=== PATIENT | male | born 1965 | race Caucasian/White ===

== ENCOUNTER 2025-03-07 17:45 | Emergency (ER) | payer OTHER, SELFPAY ==
[2025-03-07 18:03] VITALS: BP 98/60; PULSE 127; RESP 20; TEMP 38.7; O2SAT 96
--- NOTE | 2025-03-07 18:08 | EKG_ITS ---
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: : 1965 Requested By: Kerry Jack Order Number: [id number] Reading MD: Kerry Jack Measurements Intervals [place] Rate: 127 P: 61 AL: 112 QRS: 136 QRSD: 103 T: 58 QT: 309 QTc: 449 Interpretive Statements SINUS TACHYCARDIA WITH SHORT AL INTERVAL PATTERN CONSISTENT WITH PULMONARY DISEASE INCOMPLETE RIGHT BUNDLE BRANCH BLOCK [90+ ms QRS DURATION, TERMINAL R IN V1/V2, 40+ ms S IN I/aVL/V4/V5/V6] POSSIBLE RIGHT VENTRICULAR HYPERTROPHY [SOME/ALL OF: PROMINENT R IN V1, LATE TRANSITION, RAD, BRANDIE, SSS] SEPTAL MYOCARDIAL INFARCTION , OF INDETERMINATE AGE [40+ ms Q WAVE IN V1/V2] No previous ECG available for comparison /[id number]/[email or web address]/[id number].pdf
--- NOTE | 2025-03-07 18:18 | XR_ITS ---
EXAMINATION: AP chest single view TECHNIQUE: AP portable semiupright chest single view Date and time: March 07, 2025, 1850 hours INDICATIONS: Sepsis alert FINDINGS: Normal heart size Lungs are clear. The osseous structures are intact IMPRESSION: No active disease
--- NOTE | 2025-03-07 18:20 | EDNOTE_ITS ---
ED General RME/HPI General Chief complaint: General Adult/Misc Complain Stated complaint: PASSED OUT AT [place]; TACHY X 1 MO., HR 128 Time Seen by Provider: 03/07/25 18:17 Arrival date/time: 03/07/25 17:45 CC: Syncope HPI patient presents to the ER via EMS who report tachypneic and tachycardic at bedside states the patient became unconscious after syncopal episode and turned blue, [id number] was established and the patient woke up gasping for air , currently the patient is awake alert oriented nontoxic- appearing with no complaints such as chest pain shortness of breath difficulty breathing dizziness or blurred vision. Related Data Allergies Allergy/AdvReac Type Severity Reaction Status Date / Time No Known Allergies Allergy Verified 03/07/25 17:49 Review of Systems Review of Systems Narrative Review of Systems: GEN: No fever, no chills, no weight loss EYES: No discharge, no visual changes, no pain HEENT: No ear pain, no congestion, no sore throat PULM: No shortness of breath, no cough, no congestion CV: No chest pain, no dyspnea on exertion, no palpitations GI: No nausea, no vomiting, no diarrhea, no pain, no constipation : No frequency, no urgency, no dysuria MUSC/SKEL: No joint pain, no back pain SKIN: No rash PSYCH: No hallucinations, no depression HEME/LYMPH: No easy bleeding or bruising tendencies NEURO: No weakness, no headache Past Medical History Social History SMOKING STATUS: Never smoker ED Exam Narrative Physical exam: [General: Obese not in any acute distress Head normocephalic HEENT: Eyes pupils are PERRLA EOMs are intact mouth pink dry membranes uvula is midline swallow symmetrical phonation is normal. All other subsystems of HEENT are within acceptable limits Neck is supple nontender Chest equal chest rise nontender to palpation Respiratory: Clear to auscultation no wheezes crackles or rubs CV: Rate rhythm is regular no murmurs rubs or clicks Abdomen is distended secondary to body habitus soft nontender no masses positive bowel sounds all 4 quadrants Back: No CVA tenderness no spinous process tenderness from cervical spine thoracic and lumbar spine Skin: Intact no petechiae rash induration ulceration or crepitus Extremities: Moving all extremity against resistance cap refill less than 2 seconds neurosensory intact. No lower extremity edema. Neuro: Awake alert oriented x3 Glascow coma 15 no focal deficits] Course Course Course Narrative: Laboratory results are unremarkable for any acute finding patient has had no repeat experiences of syncope near syncope and has not had any deterioration in neurologic status throughout his visit the emergency room. Given that the patient has this unexplained febrile episodes that are resolved with steroids injections by his PCP I have low index of suspicion the fever is a result of an infectious process as there are no indicators. This time patient will be discharged home with a diagnosis of syncope. If there is a worsening of symptoms he is to follow-up with his primary care doctor or return to the emergency room for reevaluation. 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 03/07/25 18:18 Active Continuous Pulse Oximetry STAT Care 03/07/25 18:18 Completed EKG (ED ONLY) *Do not use* NOW Care 03/07/25 18:09 Completed In and Out Catheter X1PRN Care 03/07/25 18:18 Active Insert IV NOW Care 03/07/25 18:18 Active NPO STAT Care 03/07/25 18:18 Active Strict Intake and Output Routine Care 03/07/25 18:[address] head/brain wo con Stat Exams 03/07/25 19:34 Completed EKG (ED Only) Stat Exams 03/07/25 18:08 Draft XR chest 1V SEPSIS PROTOCOL Stat Exams 03/07/25 18:18 Completed B-Type Natriuretic Peptide Stat Lab 03/07/25 18:33 Completed Blood Culture (Lab) Stat Lab 03/07/25 18:27 Received CBC Stat Lab 03/07/25 18:33 Completed Comprehensive Metabolic Panel Stat Lab 03/07/25 18:33 Completed Influenza A & B Rapid Panel Stat Lab 03/07/25 18:44 Completed LDH (Lactate Dehydrogenase) Stat Lab 03/07/25 18:33 Completed Lactate (Lactic Acid) Stat Lab 03/07/25 18:33 Completed Lipase Stat Lab 03/07/25 18:33 Completed Magnesium Stat Lab 03/07/25 18:33 Completed Partial Thromboplastin Time Stat Lab 03/07/25 18:33 Completed Phosphorous Stat Lab 03/07/25 18:33 Completed Procalcitonin Stat Lab 03/07/25 18:33 Completed Prothrombin Time with INR Stat Lab 03/07/25 18:33 Completed Troponin I Stat Lab 03/07/25 18:33 Completed Urinalysis, C/S if Indicated Stat Lab 03/07/25 18:18 Ordered Acetaminophen Ivpb [Ofirmev Inj] Med 03/07/25 18:19 Discontinued 1,000 mg in 100 ml IV NOW Ringers Lactated 1000 ml [Lactated Ringers] 1,000 ml Med 03/07/25 18:18 Discontinued IV 999 mls/hr Oxygen Delivery NOW RT 03/07/25 18:18 Active Vital Signs Vital signs: Vital Signs Temperature 101.6 F H 03/07/25 18:03 Pulse Rate 127 H 03/07/25 18:03 Respiratory Rate 20 03/07/25 18:03 Blood Pressure 98/60 03/07/25 18:03 Pulse Oximetry (%) 96 03/07/25 18:03 Oxygen Delivery Method Room Air 03/07/25 18:03 Discharge Plan Plan Patient Disposition: HOME (Self Care) Patient condition on transfer: Stable Prescriptions/Referrals Referrals: No Primary/Family,Physician [Primary Care Provider] - In 1 week Félix Oconnor MD [Physician, Family Practice] - In 1 week Problem List Clinical Impression: Syncope and collapse Patient/Caregiver Discharge Instructions Other Activity Instructions:: Follow-up with your primary care doctor as stated get your steroid injection for your unexplained fevers. There was no acute finding in your workup here today. Including your head CT laboratory work EKG and chest x-ray. If there is a repeat of symptoms return immediately to the closest emergency room for reevaluation. 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 Patient states he gets regular steroid injections for these episodes. EKG Interpretation EKG #1: EKG Interpretation: EKG performed at 1758 shows a ventricular rate of 127 DC interval 112 QRS of 103 QTc of 384 this sinus tachycardia short DC interval. Labs Labs: interpreted by me Imaging Imaging interpretation: interpreted by me Imaging Interpretation(s): CBC shows no acute leukocytosis anemia thrombocytopenia Coags show a PT of 12.6 INR 1.2 APTT 29.2 CMP shows a sodium 131 chloride of 94 no other electrolyte imbalances no renal impairment no transaminitis T. bili at 1.6 LDH at 450. Troponin at less than 0.020 BNP is undetected Pro-Alex at 0.92 Lipase within acceptable limits Influenza is negative. Chest x-ray as interpreted by me is negative for any acute finding. Medication Administration(s) Medication Administration History Discontinued Medications Lactated Ringer's (Lactated Ringers) 1,000 mls @ 999 mls/hr IV .Q1H1M ONE Stop: 03/07/25 19:18 Last Infusion: 03/07/25 19:35 Dose: Infused Documented By: Admin: 03/07/25 18:44 Dose: 999 mls/hr Documented By: SIMONE Acetaminophen (Ofirmev Inj) 1,000 mg in 100 mls @ 250 mls/hr IV NOW ONE Stop: 03/07/25 18:42 Last Infusion: 03/07/25 19:13 Dose: Infused Documented By: Admin: 03/07/25 18:47 Dose: 250 mls/hr Documented By: SIMONE
[2025-03-07 18:39] VITALS: PULSE 122
[2025-03-07 18:42] LABS: Lactate (Lactic Acid) 1.4 mMol/L (0.4-2.0)
[2025-03-07] MEDS: RINGERS LACTATED 1000 ML 1,000 ML 999 ML IV (18:44)
[2025-03-07 18:47] VITALS: BMI 35.3
[2025-03-07] MEDS: ACETAMINOPHEN IVPB 1,000 MG/100 ML VIAL 250 MG IV (18:47)
[2025-03-07 18:50] LABS: Basophils # (Auto) 0.1 Thou/mm3 (0.0-0.2); Basophils % (Auto) 1 % (0-2.5); Eosinophils # (Auto) 0.0 Thou/mm3 (0.0-0.5); Eosinophils % (Auto) 0 % (0-10); Hematocrit 40.2 % (41.0-53.0); Hemoglobin 13.5 g/dL (13.5-16.0); Immature Granulocytes Auto 0.06 Thou/mm3 (0.00-0.00); Lymphocytes # (Auto) 0.7 Thou/mm3 (1.0-4.8); Lymphocytes % (Auto) 9 % (10-50); Mean Corpuscular HGB Conc 33.6 g/dl (31.0-37.0); Mean Corpuscular Hemoglobin 28.2 pg (25.0-35.0); Mean Corpuscular Volume 84 fL (80-100); Monocytes # (Auto) 1.3 Thou/mm3 (0.0-0.8); Monocytes % (Auto) 18 % (0-12); Neutrophils # (Auto) 5.3 Thou/mm3 (1.8-7.7); Neutrophils % (Auto) 71 % (37-80); Nucleated Red Blood Cell # 0.00 Thou/mm3 (0.00-0.00); Nucleated Red Blood Cell % 0 /100 WBC (0); Platelet Count 162 Thou/mm3 (140-440); RDW Standard Deviation 41.2 fL (35.1-43.9); Red Blood Count 4.78 Miln/mm3 (4.50-5.90); White Blood Count 7.4 Thou/mm3 (3.8-10.6)
[2025-03-07 18:58] LABS: INR 1.2 (0.9-1.3); Partial Thromboplastin Time 29.2 Seconds (22.0-36.0); Prothrombin Time 12.6 Seconds (9.0-12.2)
[2025-03-07 19:01] LABS: B-Type Natriuretic Peptide < 20 pg/mL (0-100)
[2025-03-07 19:05] VITALS: BP 95/71; PULSE 119; RESP 24; RESP 95; O2SAT 95
[2025-03-07 19:10] LABS: Alanine Aminotransferase 27 U/L (10-49); Albumin, Serum 5.2 gm/dL (3.5-5.0); Albumin/Globulin Ratio 1.9 (1.2-2.2); Alkaline Phosphatase 104 U/L (46-116); Anion Gap 13 (7-16); Aspartate Amino Transferase 33 U/L (0-34); BUN/Creatinine Ratio 14 Ratio (12-20); Bilirubin,Total 1.6 mg/dL (0.3-1.2); Blood Urea Nitrogen 18 mg/dL (9-23); Calcium 9.6 mg/dL (8.3-10.6); Calcium (Corrected) 9.6 mg/dL (8.5-10.1); Carbon Dioxide 23.6 mMol/L (20.0-31.0); Chloride 94 mMol/L (98-107); Creatinine (Component) 1.3 mg/dL (0.6-1.3); Estimated Creatinine Clearance 63.1 mL/min (>60); Globulin 2.8 gm/dL (2.3-3.5); Glucose 98 mg/dL (74-106); LDH (Lactate Dehydrogenase) 450 U/L (120-246); Lipase 23 U/L (12-53); Magnesium 1.9 mg/dL (1.6-2.6); Osmolality,Calculated 264 (275-295); Phosphorous 3.5 mg/dL (2.4-5.1); Potassium 3.8 mMol/L (3.4-5.1); Procalcitonin 0.92 ng/ml (0.0-0.49); Sodium 131 mMol/L (136-145); Total Protein 8.0 gm/dL (5.7-8.2); Troponin I < 0.020 ng/mL (0.0-0.045); eGFR > 60 See Note
[2025-03-07 19:24] LABS: Influenza A Ag Negative; Influenza B Ag Negative
--- NOTE | 2025-03-07 19:34 | XR_ITS ---
Examination: CT brain head without contrast. 2-D sagittal coronal reconstructions Date and time of exam: March 07, 20252010 hours INDICATION: Ground-level fall today with injury to the head, head pain CTDI: vol (mGy): 51.5 DLP: (mGycm): 981 Technique: Multiple CT axial sections of the brain have been obtained, 5 mm slice thickness. Contrast has not been administered. 2-D sagittal, coronal reconstructions have been obtained Low dose protocols were performed. One or more of the following dose reduction techniques were used; automated exposure control, adjustment of the mA and/or KV according to patient size, use of iterative reconstruction technique. Findings: No significant ventricular enlargement. Intra-axial or extra-axial hemorrhage density is not seen. No mass effect or midline shift Basal cisterns are not remarkable. Fourth ventricle is midline. Cranial vault intact. Impression: Negative for acute hemorrhage, mass effect or midline shift
[2025-03-07 20:55] VITALS: BP 127/86; PULSE 101; RESP 18; TEMP 37.7; O2SAT 96
== END 2025-03-07 21:13 | disposition home or self-care (01) ==
PROVIDERS: Registered Nurse General Practice; Emergency Provider Emergency Medicine
DX: R55 Syncope and collapse (principal); E78.00 Pure hypercholesterolemia, unspecified; I10 Essential (primary) hypertension
CPT/HCPCS: 36415; 70450; 71045; 80053; 81001; 83605; 83615; 83690; 83735; 83880; 84100; 84145; 84484; 85025; 85610; 85730; 87040; 87502; 87811; 93005; 99284; J0131; J7120